=== PATIENT | female | born 2000 | race Hispanic/Latino ===

== ENCOUNTER → 2018-03-17 | Outpatient (CLI) | payer SELFPAY | LOC: LAB.O 17:16 | PROVIDERS: ATTEND Obstetrics & Gynecology | DX: M81.8 Other osteoporosis without current pathological fracture (principal); R89.9 Unspecified abnormal finding in specimens from other organs, systems and tissues ==

== ENCOUNTER 2018-04-24 05:00 | Emergency (ER) | payer OTHER ==
[2018-04-24 05:24] VITALS: BP 110/66; TEMP 98.5; O2SAT 100
--- NOTE | 2018-04-24 05:34 | ED.PDOC ---
History of Present Illness - General Chief Complaint: ENT Problem Stated Complaint: sore throat, right ear pain Time Seen by Provider: 04/24/18 05:23 Source: patient Exam Limitations: no limitations - History of Present Illness Initial Comments: Patient presents with a sore throat for one day. Has had a mild non-productive cough today and clear nasal exudates. No known sick contacts. No fevers. Patient smokes cigarettes. No other complaints. Timing/Duration: 24 hours Severity: moderate Improving Factors: nothing Worsening Factors: nothing Associated Symptoms: other - as in HPI Allergies/Adverse Reactions: Allergies NO KNOWN ALLERGY Allergy (Verified 04/24/18 05:17) Home Medications: Ambulatory Orders Cyclobenzaprine HCl [Flexeril] 10 mg PO PRN 04/24/18 Tramadol HCl [Ultram] 50 mg PO PRN 04/24/18 Review of Systems - Review of Systems Constitutional: States: no symptoms reported EENTM: States: see HPI Respiratory: States: see HPI Cardiology: States: no symptoms reported Gastrointestinal/Abdominal: States: no symptoms reported Genitourinary: States: no symptoms reported Musculoskeletal: States: no symptoms reported Skin: States: no symptoms reported Neurological: States: no symptoms reported Endocrine: States: no symptoms reported Hematologic/Lymphatic: States: no symptoms reported Past Medical History (General) - Patient Medical History Hx Seizures: No Hx Stroke: No Hx Dementia: No Hx Asthma: No Hx of COPD: No Hx Cardiac Disorders: No Hx Congestive Heart Failure: No Hx Pacemaker: No Hx Hypertension: No Hx Thyroid Disease: No Hx Diabetes: No Hx Gastroesophageal Reflux: No Hx Renal Disease: No Hx Cancer: No Hx of HIV: No Hx Hepatitis C: No Hx MRSA: No Surgical History: no surgical history - Vaccination History Hx Tetanus, Diphtheria Vaccination: Yes Hx Influenza Vaccination: No - Social History Hx Tobacco Use: Yes Hx Alcohol Use: Yes Physical Exam - Physical Exam General Appearance: Alert Eye Exam: bilateral normal Ears, Nose, Throat: tonsillar swelling - 3+ with purulence, moderate erythema Neck: non-tender, full range of motion, supple, lymphadenopathy (R) - Right anterior cervical LAD, TTP, mobile, fluctuant, rubbery in consistency, less than 1 cm Respiratory: lungs clear, normal breath sounds Cardiovascular/Chest: normal peripheral pulses, regular rate, rhythm Gastrointestinal/Abdominal: normal bowel sounds, non tender, soft Progress - Progress Progress: 04/24/18 05:56 Rapid strep negative. Influenza negative. Likely viral URI. Care instructions given. E.R. warnings given. Questions were elicited and answered. Patient voiced understanding and agreement with the plan. Departure - Departure Clinical Impression: Upper respiratory infection Disposition: Discharge to Home or Self Care Condition: Good Departure Forms: ED Discharge - Pt. Copy, Patient Portal Self Enrollment Instructions: DI for Ear Pain-Adult Diet: resume usual diet Activity: increase activity as tolerated Referrals: Teo Arroyo MD [Primary Care Provider] - 1-2 Weeks Home Medications: Ambulatory Orders Cyclobenzaprine HCl [Flexeril] 10 mg PO PRN 04/24/18 Tramadol HCl [Ultram] 50 mg PO PRN 04/24/18 Additional Instructions: Over the counter cough and cold formulas as directed. Tylenol or Motrin for pain or fever control. Throat lozenges with zinc may help. Increase oral fluids. Return to the E.R. if you have a temperature of 100.4 for more than 3 days or for shortness of breath.
== END 2018-04-24 06:02 | disposition home or self-care (01) ==
LOC: ER 05:00
DX: J06.9 Acute upper respiratory infection, unspecified (principal); F17.210 Nicotine dependence, cigarettes, uncomplicated

== ENCOUNTER 2018-07-19 15:44 | Emergency (ER) | payer OTHER ==
[2018-07-19 15:57] VITALS: BP 122/77; TEMP 98.1; O2SAT 99
[2018-07-19] MEDS ORDERED: LIDOCAINE 1% 2 ML VIAL INJ ONE ×2 (16:22→16:32)
[2018-07-19] MEDS ORDERED: CHLORHEXIDINE GLUCONATE 4 % 15 ML UD TOP ONE (16:22)
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
[2018-07-19] MEDS ORDERED: NEOMYCIN-BACITRACIN-POLYMYXIN 0.9 GM UD TOP ONE (17:11)
== END 2018-07-19 17:14 | disposition home or self-care (01) ==
LOC: ER 15:44
DX: S61.210A Laceration without foreign body of right index finger without damage to nail, initial encounter (principal); W26.0XXA Contact with knife, initial encounter; Y93.89 Activity, other specified; Z87.891 Personal history of nicotine dependence; Y92.9 Unspecified place or not applicable